=== PATIENT | female | born 1970 | race Caucasian/White ===

== ENCOUNTER 2016-07-04 14:55 | Emergency (ER) | payer BC, OTHER ==
[2016-07-04 15:01] VITALS: TEMP 98.9; BMI 23.6
--- NOTE | 2016-07-04 15:08 | PDOC ---
History of Present Illness - General History Source: Patient Exam Limitations: No Limitations <Sima Veloz - Last Filed: 07/04/16 17:02> - General History Source: Patient Exam Limitations: No Limitations <Eunice Garcia - Last Filed: 07/05/16 08:20> - General Chief Complaint: Chest Pain Stated Complaint: CHEST PAIN Time Seen by Provider: 07/04/16 15:01 - History of Present Illness Initial Comments: 07/04/16 16:24 Patient is a 45 year old female with a significant past medical history of TMJ who presents to the ED with a complaint of chest pain started approximately at 1330 hour today. Patient reports chest pain with sudden onset localized to the midsternal area, burning pressure pain in nature with 7/10 in severity. She states that the episode lasted for one hour. Patient reports associated cold sweats during the episode and right arm weakness. Patient states that she felt nauseous before the episode. Patient notes that she injured her back after walking her dog. She states that her symptoms have subsided while in the ED. She denies any recent travel. SH - former smoker for 30 years, quit smoking 2 years ago. PSH - none Allergies - Vicodin, Penicillin PCP Dr. Lopez (Sima Veloz) Past History <Sima Veloz - Last Filed: 07/04/16 17:02> - Past Medical History GI Disorders: Yes (GERD) - Immunization History Td Vaccination: (unknown) - Psycho/Social/Smoking Cessation Hx Anxiety: No Suicidal Ideation: No Smoking Status: No Smoking History: Never smoked Have you smoked in the past 12 months: No Number of Cigarettes Smoked Daily: 0 Information on smoking cessation initiated: No Hx Alcohol Use: ("few times a week") <Eunice Garcia - Last Filed: 07/05/16 08:20> - Past Medical History Allergies/Adverse Reactions: Allergies Allergy/AdvReac Type Severity Reaction Status Date / Time hydrocodone bitartrate Allergy Verified 07/04/16 14:57 [From Vicodin] Penicillins Allergy Verified 07/04/16 14:57 Home Medications: Ambulatory Orders NK [No Known Home Medication] 07/04/16 Review of Systems - Review of Systems Able to Perform ROS?: Yes <Sima Veloz - Last Filed: 07/04/16 17:02> <Eunice Garcia - Last Filed: 07/05/16 08:20> - Review of Systems Comments:: 07/04/16 16:25 GENERAL/CONSTITUTIONAL: No: fever, chills, weakness, loss of appetite. HEAD, EYES, EARS, NOSE AND THROAT: No: change in vision, ear pain, discharge, sore throat, throat swelling. CARDIOVASCULAR: +chest pain No: lightheadedness, palpitations, syncope RESPIRATORY: No: cough, shortness of breath, wheezing, hemoptysis, stridor. GASTROINTESTINAL: No: nausea, vomiting, abdominal cramping, diarrhea, rectal bleeding, constipation. GENITOURINARY: No: dysuria, hematuria, frequency, urgency, flank pain. MUSCULOSKELETAL: +back pain No: neck pain, joint pain, muscle swelling or pain SKIN: No: lesions, pallor, rash or easy bruising. NEUROLOGIC: No: headache, vertigo, paresthesias, weakness ENDOCRINE: No: unexplained weight gain or loss HEMATOLOGIC/LYMPHATIC: No: anemia, easy bleeding, swelling nodes (Sima Veloz) *Physical Exam <Sima Veloz - Last Filed: 07/04/16 17:02> <Eunice Garcia - Last Filed: 07/05/16 08:20> - Vital Signs Last Vital Signs Temp Pulse Resp BP Pulse Ox 98.9 F 83 18 135/99 98 07/04/16 14:55 07/04/16 19:00 07/04/16 19:00 07/04/16 19:00 07/04/16 19:00 - Physical Exam Comments: 07/04/16 16:25 GENERAL: The patient is in no acute distress. HEAD: Normal with no signs of trauma. EYES: PERRLA, EOMI, sclera anicteric, conjunctiva clear. ENT: Ears normal, nares patent, oropharynx clear without exudates. Moist mucous membranes. NECK: Normal range of motion, supple without lymphadenopathy, JVD, or masses. LUNGS: Breath sounds equal, clear to auscultation bilaterally. No wheezes, and no crackles. HEART:Regular rate and rhythm, normal S1 and S2 without murmur, rub or gallop. ABDOMEN: Soft, nontender, normoactive bowel sounds. No guarding, no rebound. EXTREMITIES: Normal range of motion, no edema. No clubbing or cyanosis. No erythema, or tenderness. NEUROLOGICAL: Cranial nerves II through XII grossly intact. Normal speech. No focal neurological deficits. MUSCULOSKELETAL: Back nontender to palpation, no CVA tenderness SKIN: Warm, Dry, normal turgor, no rashes or lesions noted. (Sima Veloz) Heart Score/ECG Review - History History: Highly suspicious - Electrocardiogram EKG: Normal - Age Age: </= 45 - Risk Factors Risk Factors Heart Score: Yes Smoking History Based on the list above the patient has:: No risk factors known - Troponin Troponin: </= normal limit - Score Heart Score - Total: 2 #1 ECG reviewed & interpreted by me at: 15:31 General ECG Interpretation: Sinus Rhythm, Normal Rate, Normal Intervals, No acute ischemic changes <Eunice Garcia - Last Filed: 07/05/16 08:20> ED Treatment Course - LABORATORY CBC & Chemistry Diagram: 07/04/16 15:00 07/04/16 15:00 <Sima Veloz - Last Filed: 07/04/16 17:02> - LABORATORY CBC & Chemistry Diagram: 07/04/16 15:00 07/04/16 15:00 <Eunice Garcia - Last Filed: 07/05/16 08:20> - ADDITIONAL ORDERS Additional order review: Laboratory Results 07/04/16 20:57 Creatine Kinase 66 Troponin I < 0.03 L 07/04/16 15:00 RBC 4.85 MCV 86.7 MCHC 33.5 RDW 12.4 MPV 7.9 D Neutrophils % 76.5 Lymphocytes % 17.9 D Monocytes % 4.7 Eosinophils % 0.3 Basophils % 0.6 - RADIOLOGY Radiology Studies Ordered: Category Date Time Status CHEST X-RAY PORTABLE* [RAD] Stat Radiology 07/04/16 15:08 Completed - Medications Given in the ED: ED Medications Discontinued Medications Generic Name Dose Route Start Last Admin Trade Name Freq PRN Reason Stop Dose Admin Cyclobenzaprine HCl 5 mg 07/04/16 16:37 07/04/16 16:45 Flexeril - PO 07/04/16 16:38 5 mg ONCE ONE Administration Ketorolac Tromethamine 30 mg 07/04/16 16:37 07/04/16 16:45 Toradol Injection - IVPUSH 07/04/16 16:38 30 mg ONCE ONE Administration Medical Decision Making <Sima Veloz - Last Filed: 07/04/16 17:02> <Eunice Garcia - Last Filed: 07/05/16 08:20> - Medical Decision Making 07/04/16 17:02 A call was placed to Dr. Lpoez at her service awaiting a call back. (Sima Veloz) 07/04/16 15:08 A portion of this note was documented by scribe services under my direction. I have reviewed the details of the note, within reason, and agree with the documentation with the following case summary and management plan written by me. Nursing documentation reviewed and incorporated into medical decision making 45 yo F no history of DM, HTN, HLD, obesity, family history of early heart disease She has a prior smoking history (20 year history, quit 2 years ago) Pt states, that this morning, she threw out her lower back because her 65 pound Pit bull lunged at someone She had to walk around with a cane at home Notes that at approximately 1:30pm, while seated at her desk, she developed chest pain which she describes as burning or pressure Located in the center of the chest She rates pain 7/10 No radiation Associated with chills, mild nausea Pain lasted a total of 1 hour and self resolved Not exertional no recent travel No fevers, no cough No chest wall trauma Exam : nml Differential includes cardiac ischemia, pe, asthma exacerbation, pneumonia, pneumothorax, pleural effusion, costochondritis, pericarditis, GERD. PERC score negative EKG non ischemic CXR nml 07/04/16 16:34 Laboratory Tests 07/04/16 07/04/16 07/04/16 15:00 15:00 15:00 WBC 7.7 Hgb 14.1 Hct 42.1 Plt Count 304 D Sodium 135 L Potassium 4.0 Chloride 101 Carbon Dioxide 25 BUN 10 D Creatinine 0.8 D Random Glucose 102 Serum , Qual Negative 07/04/16 16:37 07/04/16 16:40 07/04/16 16:41 07/04/16 17:05 Heart score 2 Will repeat troponin Pt does not want to stay in the hospital Call placed to pt PMD 07/04/16 17:06 07/04/16 18:[address] lopez Pt has a borderline (+) GRECIA She recommends CTA Will do CT Will repeat troponin 9pm Will re assess 07/04/16 18:54 Upon review with patient She has no history of (+) GRECIA She does not believe that she is the person that Dr Lpoez described to me Pt would prefer NOT to have CTA She is PERC negative Will just repeat troponin (Eunice Garcia) *DC/Admit/Observation/Transfer <Sima Veloz - Last Filed: 07/04/16 17:02> <Eunice Garcia - Last Filed: 07/05/16 08:20> Diagnosis at time of Disposition: Atypical chest pain - Discharge Dispostion Disposition: HOME Condition at time of disposition: Stable - Referrals Referrals: Ivette Lopez MD [Primary Care Provider] - - Patient Instructions Printed Discharge Instructions: DI for Atypical Chest Pain Additional Instructions: Return to the emergency department immediately with ANY new, persistent or worsening symptoms including any recurrent chest pain, shortness of breath, or any other concerns. You MUST call and follow up with your doctor tomorrow for further evaluation of your symptoms. Results were discussed with you. Please make sure your doctor reviews the results of your emergency evaluation. If you had any xrays during your visit, it was read preliminarily by myself, a Radiologist will review it and if there are any additional findings we will call you. Print Language: ITALIAN - Attestations Scribe Attestion: 07/04/16 16:25 Documentation prepared by WILLY Vasquez, acting as adjunct faculty for medical terminology for Eunice Garcia MD. (Sima Veloz)
[2016-07-04 16:04] LABS: BASOPHIL 0.6 % (0-2.0); EOSINOPHIL 0.3 % (0-4.5); MCH 29.1 pg (25.7-33.7); MCHC 33.5 g/dl (32.0-36.0); MEAN CELL VOLUME 86.7 fl (80-96); MEAN PLT VOLUME 7.9 fl (7.5-11.1); NEUTROPHILS 76.5 % (42.8-82.8); PLATELET COUNT 304 K/MM3 (134-434); RDW 12.4 % (11.6-15.6); WHITE BLOOD COUNT 7.7 K/mm3 (4.0-10.8)
[2016-07-04 16:18] LABS: ALBUMIN 4.4 g/dl (3.5-5.0); ALK PHOS 80 U/L (32-92); ANION GAP 9 (8-16); BILIRUBIN,TOTAL 0.4 mg/dl (0.2-1.0); CALCIUM 9.2 mg/dl (8.4-10.2); CO2 25 mmol/L (22-28); CPK(DFH) 80 IU/L (26-140); CREATININE 0.8 mg/dl (0.6-1.3); GLUCOSE,RANDOM 102 mg/dl (74-106); SGOT/AST 15 U/L (10-42); SGPT/ALT 15 U/L (10-40); TOT PROT 6.8 g/dl (6.4-8.3)
[2016-07-04 16:35] LABS: TROPONIN I (DFP) < 0.03 ng/ml (0.03-0.50)
[2016-07-04] MEDS ORDERED: CYCLOBENZAPRINE HCL 10 MG TABLET (FP) PO ONE (16:37)
[2016-07-04] MEDS ORDERED: KETOROLAC TROMETHAMINE 30 MG/1 ML VIAL IVPUSH ONE (16:37)
[2016-07-04] MEDS ORDERED: CYCLOBENZAPRINE HCL 10 MG TABLET (FP) ONE (16:40)
[2016-07-04] MEDS ORDERED: KETOROLAC TROMETHAMINE 30 MG/1 ML VIAL ONE (16:41)
[2016-07-04 19:32] VITALS: BP 135/99; PULSE 83
--- NOTE | 2016-07-04 20:12 | PDOC ---
*Physical Exam - Vital Signs Last Vital Signs Temp Pulse Resp BP Pulse Ox 98.9 F 83 18 135/99 98 07/04/16 14:55 07/04/16 19:00 07/04/16 19:00 07/04/16 19:00 07/04/16 19:00 Heart Score/ECG Review - History History: Slightly suspicious - Electrocardiogram EKG: Normal - Age Age: </= 45 - Risk Factors Risk Factors Heart Score: Yes Smoking History Based on the list above the patient has:: 1-2 risk factors - Troponin Troponin: </= normal limit - Score Heart Score - Total: 1 - ECG Impressions Comment:: 07/04/16 20:20 Twelve-lead EKG was performed and reviewed by me. EKG performed on 07/04/2016 at 20:!8 There is normal sinus rhythm with a normal rate. The axis is normal. The intervals are normal. There is normal R wave progression There are no ST or T wave abnormalities. No significant change from previous ekg Impression: Normal twelve-lead EKG ED Treatment Course - LABORATORY CBC & Chemistry Diagram: 07/04/16 15:00 07/04/16 15:00 - ADDITIONAL ORDERS Additional order review: Laboratory Results 07/04/16 07/04/16 07/04/16 15:00 15:00 15:00 Sodium 135 L Potassium 4.0 Chloride 101 Carbon Dioxide 25 Anion Gap 9 BUN 10 D Creatinine 0.8 D Creat Clearance w eGFR > 60 Random Glucose 102 Calcium 9.2 Total Bilirubin 0.4 D AST 15 D ALT 15 D Alkaline Phosphatase 80 Creatine Kinase 80 Troponin I < 0.03 L Total Protein 6.8 Albumin 4.4 Serum , Qual Negative 07/04/16 15:00 RBC 4.85 MCV 86.7 MCHC 33.5 RDW 12.4 MPV 7.9 D Neutrophils % 76.5 Lymphocytes % 17.9 D Monocytes % 4.7 Eosinophils % 0.3 Basophils % 0.6 - Medications Given in the ED: ED Medications Discontinued Medications Generic Name Dose Route Start Last Admin Trade Name Freq PRN Reason Stop Dose Admin Cyclobenzaprine HCl 5 mg 07/04/16 16:37 07/04/16 16:45 Flexeril - PO 07/04/16 16:38 5 mg ONCE ONE Administration Ketorolac Tromethamine 30 mg 07/04/16 16:37 07/04/16 16:45 Toradol Injection - IVPUSH 07/04/16 16:38 30 mg ONCE ONE Administration Medical Decision Making - Medical Decision Making 07/04/16 20:10 The case was signed out to me at approximately 7pm from Dr. Garcia. 45y F hx of TMJ, presents with chest pain starting approx 1330, sudden onset misternal, burning pressure w/o radaition lasting for approx 1 hr. There was no associated exertional symptoms. Pts HEART score is 1 AWaiting trop at 9pm pt currently resting comfortably in stretcher. 07/04/16 21:40 trop neg x 2 pt asypmtmoatic will dc with pmd fu return precautions wer discussed I discussed the physical exam findings, ancillary test results and final diagnoses with the patient. I answered all of the patient's questions. The patient was satisfied with the care received and felt comfortable with the discharge plan and treatment plan. The patient will call their primary care physician within 24 hours to arrange follow-up and will return to the Emergency Department with any new, persistent or worsening symptoms. *DC/Admit/Observation/Transfer Diagnosis at time of Disposition: Atypical chest pain - Discharge Dispostion Disposition: HOME Condition at time of disposition: Stable Admit: No - Referrals Referrals: Ivette Lopez MD [Primary Care Provider] - - Patient Instructions Printed Discharge Instructions: DI for Atypical Chest Pain Additional Instructions: Return to the emergency department immediately with ANY new, persistent or worsening symptoms including any recurrent chest pain, shortness of breath, or any other concerns. You MUST call and follow up with your doctor tomorrow for further evaluation of your symptoms. Results were discussed with you. Please make sure your doctor reviews the results of your emergency evaluation. If you had any xrays during your visit, it was read preliminarily by myself, a Radiologist will review it and if there are any additional findings we will call you. Print Language: [place] CITIZEN - Post Discharge Activity
[2016-07-04 21:35] LABS: CPK(DFH) 66 IU/L (26-140)
[2016-07-04 22:03] LABS: TROPONIN I (DFP) < 0.03 ng/ml (0.03-0.50)
--- NOTE | 2016-07-05 23:01 | EKG ---
Test Reason : Blood Pressure : / mmHG Vent. Rate : 089 BPM Atrial Rate : 090 BPM P-R Int : 142 ms QRS Dur : 080 ms QT Int : 374 ms P-R-T Axes : 042 041 043 degrees QTc Int : 455 ms NORMAL SINUS RHYTHM NORMAL ECG NO PREVIOUS ECGS AVAILABLE Confirmed by JUDY WILHELM MD ([id number]) on 07/05/2016 11:01:24 PM Referred By: JOVANY JULIAN Confirmed By:JUDY WILHELM MD
--- NOTE | 2016-07-05 23:01 | EKG ---
Test Reason : Blood Pressure : / mmHG Vent. Rate : 078 BPM Atrial Rate : 078 BPM P-R Int : 142 ms QRS Dur : 074 ms QT Int : 386 ms P-R-T Axes : 044 046 050 degrees QTc Int : 440 ms NORMAL SINUS RHYTHM NORMAL ECG WHEN COMPARED WITH ECG OF 04-JUL-2016 14:57, NO SIGNIFICANT CHANGE WAS FOUND Confirmed by JUDY WILHELM MD ([id number]) on 07/05/2016 11:01:18 PM Referred By: BUD Confirmed By:JUDY WILHELM MD
== END 2016-07-04 22:41 | disposition home or self-care (01) ==
LOC: FER 14:55
PROC: 3E0333Z Introduction of Anti-inflammatory into Peripheral Vein, Percutaneous Approach (ICD-10-PCS; principal; 2016-07-04)
DX: R07.89 Other chest pain (principal); M26.609 Unspecified temporomandibular joint disorder, unspecified side; Z87.891 Personal history of nicotine dependence; K21.9 Gastro-esophageal reflux disease without esophagitis
CPT/HCPCS: 36415; 71010-TC; 80053; 82550; 84484; 84703; 85025; 93005; 99285-25

== ENCOUNTER 2019-01-29 21:12 | Emergency (ER) | payer OTHER ==
[2019-01-29 21:29] VITALS: BP 153/95; TEMP 98.7; BMI 27.0
[2019-01-29] MEDS ORDERED: SODIUM CHLORIDE 1,000 ML IV ONE (22:51)
[2019-01-29 23:08] LABS: BASO % 0.8 % (0-2.0); EOS % 2.3 % (0-4.5); HEMATOCRIT 42.7 % (32.4-45.2); LYMPH % 16.2 % (8-40); MCH 30.5 pg (25.7-33.7); MCHC 32.8 g/dl (32.0-36.0); MEAN PLT VOLUME 7.3 fl (7.5-11.1); MONO % 4.6 % (3.8-10.2); NEUT % 76.1 % (42.8-82.8); PLATELET COUNT 260 K/MM3 (134-434); RBC 4.59 M/mm3 (3.60-5.2); WHITE BLOOD COUNT 7.7 K/mm3 (4.0-10.8)
[2019-01-29 23:20] LABS: ALBUMIN 3.9 g/dl (3.4-5.0); BILIRUBIN,TOTAL 0.4 mg/dl (0.2-1); CALCIUM 8.5 mg/dl (8.5-10); CREATININE 1.1 mg/dl (0.55-1.3); POTASSIUM 3.7 mmol/L (3.5-5.1); TOT PROT 6.5 g/dl (6.4-8.2)
--- NOTE | 2019-01-29 23:53 | PDOC ---
Documentation entered by Gina Shipley SCRIBE, acting as scribe for Earle Anderson MD. Earle Anderson MD: This documentation has been prepared by the jaunibe, Gina Shipley SCRIBE, under my direction and personally reviewed by me in its entirety. I confirm that the documentation accurately reflects all work , treatment, procedures, and medical decision making performed by me. History of Present Illness - General Chief Complaint: Blood Pressure Problem Stated Complaint: HIGH BLOOD PRESSURE Time Seen by Provider: 01/29/19 21:18 History Source: Patient Exam Limitations: No Limitations - History of Present Illness Initial Comments: 01/29/19 22:18 The patient is a 48-year-old female who presents to the emergency department with dizziness, chest-pounding, and chills. The patient reports she was lying down when she had an onset of chest-pounding. The patient states she sat up and started to feel dizzy. The patient reports following she stood up next to the bed when she began to feel dizzy like she was going to pass out and started to feel hot and sweaty, followed by having chills. The patient reports a similar episode about 2 years ago, was seen at the ER, where she was noted to have elevated blood pressure. The patient reports following up with her then PCP Dr. Arevalo, who wanted the patient to control the high blood pressure through diet. Denies taking any daily medication for HTN. The patient reports the past 3 days shes been intaking high amounts of sodium. The patient reports a chronic history of KEY secondary to TMJ, denies a new or worsening headache. Denies nausea, vomiting, diarrhea, slurred speech, loss of sensation, chest pain, or urinary symptoms. The patient reports she had a bottle of wine tonight. PAST MEDICAL HISTORY: TMJ PAST SURGICAL HISTORY: no significant history FAMILY HISTORY: no pertinent history. Denies family history of heart disease. SOCIAL HISTORY: Pt lives with family and is employed. MEDICATIONS: reviewed ALLERGIES: As per nursing notes Review of system: General: +chills, hot and sweaty episodes. No fevers. no weakness, no weight loss HEENT: No change in vision. No sore throat,. No ear pain CardioVascular: +chest pounding. No chest pain or shortness of breath Respiratory: No cough, or wheezing. Gastrointestinal: no nausea, vomiting, diarrhea or constipation, No rectal bleeding Genitourinary: No dysuria, hematuria, or frequency Musculoskeletal: No joint or muscle pain or swelling Neurologic:+dizziness and headache. No vertigo or loss of consciousness Psychiatric: nor depression Skin: No rashes or easy bruising Endocrine: no increased thirst or abnormal weight change Allergic: no skin or latex allergy All other systems reviewed and normal Physical exam: General: Well-nourished well-developed individual, no acute distress HEENT: Throat: Normal, tonsils normal, no erythema or exudate Neck: Supple, no meningeal signs, no lymphadenopathy Eyes: Pupils equal reactive and round, extraocular motion intact Chest: Nontender to palpation Cardiac: S1-S2 normal, +mild tachycardia, regular rhythm, no murmurs rubs or gallops Respiratory: Lungs clear to auscultation bilateral Abdomen: Soft, nondistended, normal bowel sounds, nontender to palpation diffusely Extremities: Warm, dry, no cyanosis, clubbing, or edema Skin: No rashes Neuro: Alert and oriented x3, nonfocal exam, grossly intact, normal gait Psych: Normal mood and affect 01/29/19 23:49 Assessment and plan: This is a 48-year-old female comes in complaining of some dizziness palpitations and thinks her blood pressure is elevated. Patient's blood pressure was mildly elevated at 150/90. However patient said she does have a history of elevated blood pressure but is not on any medication. Patient had an EKG that shows normal sinus rhythm at a rate of [address]-T wave changes normal EKG Patient's work-up was otherwise were unremarkable with normal labs except a mildly elevated sugar of 128 Patient given IV fluids Patient feels better and discharged home. Past History - Past Medical History Allergies/Adverse Reactions: Allergies Allergy/AdvReac Type Severity Reaction Status Date / Time hydrocodone bitartrate Allergy Verified 01/29/19 21:14 [From Vicodin] Penicillins Allergy Verified 01/29/19 21:14 Home Medications: Ambulatory Orders Azithromycin 250 mg PO DAILY 01/29/19 COPD: No GI Disorders: Yes (GERD) - Immunization History Td Vaccination: (unknown) - Psycho Social/Smoking Cessation Hx Smoking Status: No Smoking History: Never smoked Have you smoked in the past 12 months: No Number of Cigarettes Smoked Daily: 0 Hx Alcohol Use: Yes (1 BOTTLE TONIGHT) Drug/Substance Use Hx: No *Physical Exam - Vital Signs Last Vital Signs Temp Pulse Resp BP Pulse Ox 98.7 F 114 H 16 153/95 100 01/29/19 21:13 01/29/19 21:13 01/29/19 21:13 01/29/19 21:13 01/29/19 21:13 ED Treatment Course - LABORATORY CBC & Chemistry Diagram: 01/29/19 22:55 01/29/19 22:47 Discharge - Discharge Information Problems reviewed: Yes Clinical Impression/Diagnosis: Palpitation, Dizziness Condition: Good Disposition: HOME - Admission No - Follow up/Referral Referrals: Jesus Livingston MD [Primary Care Provider] - - Patient Discharge Instructions Additional Instructions: After the holidays is important that you call your primary care doctor to make an appointment for a complete physical including blood work. Most likely you will need to be started on some medication for mildly elevated blood pressure. Return to the emergency department immediately with ANY new, persistent or worsening symptoms. Continue any medications as previously prescribed by your physician. You should follow up with your primary doctor as soon as possible regarding today's emergency department visit. . Please make sure your doctor reviews the results of your emergency evaluation. Thank you for coming to the Emergency Department today for your care. It was a pleasure to see you today. Please note that your evaluation is INCOMPLETE until you follow-up with your doctor. - Post Discharge Activity
[2019-01-30] VITALS: PULSE 82
--- NOTE | 2019-01-30 10:16 | EKG ---
Test Reason : Blood Pressure : / mmHG Vent. Rate : 096 BPM Atrial Rate : 096 BPM P-R Int : 144 ms QRS Dur : 076 ms QT Int : 356 ms P-R-T Axes : 029 037 040 degrees QTc Int : 449 ms NORMAL SINUS RHYTHM NORMAL ECG WHEN COMPARED WITH ECG OF 04-JUL-2016 20:18, NO SIGNIFICANT CHANGE WAS FOUND Confirmed by LAYLA OVALLES MD ([id number]) on 01/30/2019 10:15:54 AM Referred By: DR BAIRD Confirmed By:LAYLA OVALLES MD
== END 2019-01-30 00:02 | disposition home or self-care (01) ==
LOC: FER 21:12
PROC: 3E0337Z Introduction of Electrolytic and Water Balance Substance into Peripheral Vein, Percutaneous Approach (ICD-10-PCS; principal; 2019-01-29)
DX: R00.2 Palpitations (principal); R42 Dizziness and giddiness; Z88.0 Allergy status to penicillin; Z88.6 Allergy status to analgesic agent; K21.9 Gastro-esophageal reflux disease without esophagitis
CPT/HCPCS: 36415; 80053; 82550; 84484; 85025; 93005; 99283-25; J7030

== ENCOUNTER 2023-01-26 22:01 | Emergency (ER) | payer OTHER ==
[2023-01-26 22:07] VITALS: BP 150/101; PULSE 80; RESP 20; TEMP 97.9; BMI 34.9
[2023-01-26] MEDS ORDERED: ONDANSETRON 4 MG/2 ML VIAL ONE (22:16)
[2023-01-26] MEDS ORDERED: KETOROLAC TROMETHAMINE 30 MG/1 ML VIAL IVPUSH ONE (22:27)
[2023-01-26 22:35] LABS: HEMATOCRIT 44.1 % (32.4-45.2); HEMOGLOBIN 14.7 G/dL (10.7-15.3); MCH 31.1 pg (25.7-33.7); MCHC 33.3 g/dl (32.0-36.0); MEAN CELL VOLUME 93.5 fl (80-96); MEAN PLT VOLUME 7.2 fl (7.5-11.1); PLATELET COUNT 316.7 10^3/uL (134-434); RBC 4.72 10^6/uL (3.60-5.2); RDW 13.6 % (11.6-15.6); WHITE BLOOD COUNT 9.1 10^3/uL (4.0-10.8)
[2023-01-26] MEDS ORDERED: KETOROLAC TROMETHAMINE 30 MG/1 ML VIAL ONE (22:35)
[2023-01-26] MEDS ORDERED: ONDANSETRON 4 MG/2 ML VIAL IVPUSH PRN (22:38)
[2023-01-26 22:46] LABS: ALBUMIN 4.2 g/dl (3.4-5.0); BILIRUBIN,TOTAL 0.4 mg/dl (0.2-1); CALCIUM 9.7 mg/dl (8.5-10.1); POTASSIUM 3.8 mmol/L (3.5-5.1); TOT PROT 6.9 g/dl (6.4-8.2)
[2023-01-26 22:52] LABS: PLATELET ESTIMATE ADEQUATE
[2023-01-27] MEDS ORDERED: ACETAMINOPHEN 500 MG TABLET (FP) ONE (00:19)
== END 2023-01-27 00:49 | disposition home or self-care (01) ==
LOC: FER 22:01
PROC: 3E033NZ Introduction of Analgesics, Hypnotics, Sedatives into Peripheral Vein, Percutaneous Approach (ICD-10-PCS; principal; 2023-01-26)
PROC: 3E033GC Introduction of Other Therapeutic Substance into Peripheral Vein, Percutaneous Approach (ICD-10-PCS; 2023-01-26)
DX: R11.2 Nausea with vomiting, unspecified (principal); R10.11 Right upper quadrant pain; K80.50 Calculus of bile duct without cholangitis or cholecystitis without obstruction
CPT/HCPCS: 36415; 76705-TC; 80053; 83690; 85027; 99284-25

== ENCOUNTER 2023-02-03 04:19 | Day surgery (SDC) | payer OTHER ==
[2023-02-02 11:38] VITALS: BMI 36.5
[2023-02-03] MEDS ORDERED: BUPIVACAINE HCL/PF 0.25% (2.5MG/ML) 10 ML VIAL ONE (13:45)
[2023-02-03] MEDS ORDERED: SUCCINYLCHOLINE CHLORIDE 200 MG/10 ML SYRINGE ONE (13:46)
[2023-02-03] MEDS ORDERED: PROPOFOL 40 ML ONE (13:46)
[2023-02-03] MEDS ORDERED: MIDAZOLAM HCL 2 MG/2 ML SINGLE DOSE VIAL ONE (13:46)
[2023-02-03] MEDS ORDERED: FENTANYL CITRATE/PF 50 MCG/ML VIAL ONE ×9 (13:46→16:51)
[2023-02-03] MEDS ORDERED: ROCURONIUM BROMIDE 50 MG/5 ML SYRINGE ONE ×2 (13:46→15:05)
[2023-02-03] MEDS ORDERED: ceFAZolin SODIUM 1 GM VIAL ONE (14:10)
[2023-02-03] MEDS ORDERED: ceFAZolin 2 GRAM PREMIX BAG IVPB ONE (14:14)
[2023-02-03] MEDS ORDERED: BUPIVACAINE HCL/PF 0.25% (2.5MG/ML) 10 ML VIAL IJ ONE (14:27)
[2023-02-03] MEDS ORDERED: DEXAMETHASONE SOD PHOSPHATE 4 MG/1 ML VIAL ONE (14:28)
[2023-02-03] MEDS ORDERED: ONDANSETRON 4 MG/2 ML VIAL ONE (14:28)
[2023-02-03] MEDS ORDERED: NEOSTIGMINE METHYLSULFATE 0.5 MG/1 ML - 10 ML MDV ONE (14:57)
[2023-02-03] MEDS ORDERED: oxyCODONE HCL 5 MG TABLET PO PRN ×2 (15:49→18:16)
[2023-02-03] MEDS ORDERED: PROMETHAZINE HCL 25 MG/1 ML VIAL IVPB PRN (15:49)
[2023-02-03] MEDS ORDERED: ACETAMINOPHEN INJECTION 100 ML IVPB ONE (15:52)
[2023-02-03] MEDS ORDERED: LACTATED RINGERS SOLUTION 1,000 ML IV SCH (16:00)
[2023-02-03] MEDS: ACETAMINOPHEN 1000 MG/100 ML BAG IVPB ONE ×2 (16:00→18:41)
[2023-02-03] MEDS ORDERED: HYDROmorphone HCl 2 MG/ML VIAL IVPUSH PRN (17:29)
[2023-02-03] MEDS ORDERED: ONDANSETRON 4 MG/2 ML VIAL IVPUSH PRN (18:15)
[2023-02-03] MEDS ORDERED: morphine SULFATE 4 MG/ML VIAL IVPUSH PRN (18:23)
[2023-02-03] MEDS ORDERED: ALBUTEROL SO4 HFA INHALER IH PRN (18:25)
[2023-02-03] MEDS ORDERED: SODIUM CHLORIDE 1,000 ML IV SCH (18:30)
[2023-02-03] MEDS: KETOROLAC TROMETHAMINE 15 MG/ML VIAL IVPUSH SCH (18:48)
[2023-02-03] MEDS: METOPROLOL TARTRATE 25 MG TABLET (FP) PO SCH (21:28)
[2023-02-03] MEDS: HEPARIN NA (PORCINE) 5,000 UNITS/ML 1ML VIAL SQ SCH (21:28)
[2023-02-03] MEDS: ACETAMINOPHEN 1000 MG/100 ML BAG IVPB SCH (23:32)
[2023-02-04] MEDS: KETOROLAC TROMETHAMINE 15 MG/ML VIAL IVPUSH SCH (02:41)
[2023-02-04] MEDS: ACETAMINOPHEN 1000 MG/100 ML BAG IVPB SCH (06:09)
[2023-02-04 06:52] VITALS: BP 98/50; PULSE 59; RESP 18; TEMP 98.5
[2023-02-04] MEDS ORDERED: CHLORTHALIDONE 25 MG TABLET PO SCH (10:00)
[2023-02-04] MEDS: HEPARIN NA (PORCINE) 5,000 UNITS/ML 1ML VIAL SQ SCH (10:06)
[2023-02-04] MEDS: METOPROLOL TARTRATE 25 MG TABLET (FP) PO SCH (10:06)
[2023-02-04] MEDS ORDERED: ACETAMINOPHEN 500 MG TABLET (FP) PO SCH (12:00)
== END 2023-02-04 15:30 | disposition home or self-care (01) ==
LOC: JASUSAT 04:19 → JASU-SURG 04:19 → J5S 18:29 → JASUSAT 02-04 15:30
PROVIDERS: ATTEND Surgery
PROC: 0FT44ZZ Resection of Gallbladder, Percutaneous Endoscopic Approach (ICD-10-PCS; principal; 2023-02-03 13:30)
DX: K80.10 Calculus of gallbladder with chronic cholecystitis without obstruction (principal)
CPT/HCPCS: 88304-TC; 94010; 94760; J1644